=== PATIENT | female | born 1965 | race Caucasian/White ===

== ENCOUNTER → 2017-06-24 10:16 | Outpatient (CLI) | payer MEDICAID, SELFPAY ==
--- NOTE | 2017-06-24 11:15 | BRBX_PTH ---
PATIENT: SHAYLA BROWN LOC: [facility] U#:[id number] AGE/SX: 59/F ROOM: RE06/24/[address]: Dr. Monique Ellington MD : 1965 BED: DIS: SPEC #: [id number] RECD: 06/24/17 12:30 STATUS: KIARRA REElier #: [id number] EMERSON: 06/24/17 11:[address]: Monique Ellington DEPT: SURGICAL PATHOLOGY RECD BY: Goran Chauhan ENTERED: 06/24/17 13:07 SP TYPE: BREAST BX OTHR DR: Zoltan Phillips MD Tissues: Left breast, NOS Procedures: Surgery Specimen Level IV HEADER OPERATION: Left breast stereotactic needle core biopsy PRE-OP DIAGNOSIS: Calcifications 1 o?clock left breast TISSUE SUBMITTED: Left breast tissue ISCHEMIC TIME: 2 minutes FIXATION TIME: 8 hours MICROSCOPIC DIAGNOSIS Left breast, stereotactic needle core biopsy: Fibrocystic change. Focal intraductal hyperplasia without atypia. Banal microcalcifications. No evidence of malignancy. AM:chilango 06/25/17 MICROSCOPIC DESCRIPTION Slides are reviewed. GROSS DESCRIPTION Received in fixative is one container labeled with the patient's name and designated left breast. The specimen consists of multiple irregular and elongated fragments of yellow-white soft tissue that in aggregate measure 5 x 2.5 x 0.2 cm. The specimen is totally submitted in two cassettes. / AM:chilango 06/24/17 TC:5 CPT: 91543
--- NOTE | 2017-07-11 15:38 | PCM.OPRPT ---
Report of Operation Date of Procedure: 06/24/17 Pre-Operative Diagnosis: abnormal left breast mammograms Post-Operative Diagnosis: same Surgery/Procedure Performed:: left stereotactic breast biopsy Description of Surgical Findings:: calcifications in the upper outer quadrant of the left breast Type of Anesthesia:: Local - 1% xylocaine Specimen's removed: left breast tissue Estimated Blood Loss (mL): < 1 Fluids Replaced: none Description of Procedure: After informed consent was given, the patient was brought into the breast biopsy suite. Appropriate time out protocol was followed. She was then placed in the prone position on the stereotactic biopsy table. The patients left breast was then placed at the opening at the head of the table. A sales and marketing engineer compression mammogram was then obtained. The suspicious radiological lesion was then identified. Stereo pictures of the lesion were then taken for XYZ coordinates. The Mammotome biopsy stylus was then positioned where it would be entering into the patients left breast. The skin at this site was then cleansed with a surgical skin preparation. The skin and subcutaneous tissues at this site were then infiltrated with 1% xylocaine. A small skin incision was made with an 11 blade scalpel. The biopsy stylus was then positioned into the patients breast at the proper coordinates of depth. Using the Mammotome vacuum-assist device, several core samples of breast tissue were obtained. A specimen mammogram was the obtained and revealed that the abnormal calcifications were within the specimen. A hemostatic marker clip was then placed into the biopsy cavity and a sales and marketing engineer film revealed that it was properly deployed. The patient was then placed in the supine position and pressure was applied to the breast until no active bleeding was noted. Steristrips were applied to reapproximate the skin. A unilateral mammogram in the CC and MLO view were then taken which revealed that the marker clip was in the same area as the previous suspicious lesion. The patient tolerated the procedure well and was discharged from the breast biopsy suite in good condition. - Complications none noted
== END ==
PROVIDERS: Family Provider Family Medicine; PCP Family Medicine; Visit Provider Surgery
DX: N60.12 Diffuse cystic mastopathy of left breast (principal); N62 Hypertrophy of breast; R92.0 Mammographic microcalcification found on diagnostic imaging of breast
CPT/HCPCS: 19081; 88305; J7050; A4648